=== PATIENT | male | born 1950 | race Caucasian/White ===

== ENCOUNTER → 2023-11-06 08:15 | Outpatient (REF) | payer MEDICARE, BC, SELFPAY | LOC: RAD 08:15 | PROVIDERS: ATTENDING PHYSICIAN Otolaryngology; FAMILY PHYSICIAN Internal Medicine | DX: R13.14 Dysphagia, pharyngoesophageal phase (principal) | CPT/HCPCS: 74230; 92611 ==

== ENCOUNTER → 2023-11-20 14:14 | Outpatient (REF) | payer MEDICARE, BC, SELFPAY | LOC: HWRAD 14:14 | PROVIDERS: ATTENDING PHYSICIAN Specialist; FAMILY PHYSICIAN Internal Medicine | DX: R51.9 Headache, unspecified (principal) | CPT/HCPCS: 70470; Q9967 ==

== ENCOUNTER → 2024-01-26 15:43 | Outpatient (REF) | payer MEDICARE, BC, SELFPAY | LOC: HWRAD 15:43 | PROVIDERS: ATTENDING PHYSICIAN Nurse Practitioner Acute Care; FAMILY PHYSICIAN Internal Medicine | DX: M43.25 Fusion of spine, thoracolumbar region (principal) | CPT/HCPCS: 72128 ==

== ENCOUNTER 2024-02-02 14:56 | Inpatient (IN) | payer MEDICARE, BC, SELFPAY ==
[2024-02-02] VITALS (10 sets, daily range): BP systolic 105–138; BP diastolic 68–106; PULSE 68–86; BMI 32.3
[2024-02-02 11:00] LABS: % Basophils 0.6 % (0-2); % Eosinophils 2.6 % (0-6); % Immature Granulocytes 0.5 % (0-0.5); % Lymphocytes 8.8 % (20.5-51.1); % Monocytes 7.8 % (1.7-9.3); % Neutrophils 79.7 % (42.2-75.2); Absolute Basophils 0.1 10^3/uL (0-0.2); Absolute Eosinophils 0.3 10^3/uL (0-0.7); Absolute Immature Granulocytes 0.1 10^3/uL (0-0.05); Absolute Monocytes 0.8 10^3/uL (0.1-0.6); Absolute Neutrophils 8.6 10^3/uL (1.4-6.5); Hematocrit 34.7 % (39.0-52.0); Mean Corp Hgb Conc. 34.6 g/dL (33.0-37.0); Mean Corpuscular Hgb 30.3 pg (27.0-31.0); Mean Corpuscular Volume 87.6 fL (80.0-94.0); Mean Platelet Volume 9.8 fL (7.4-10.4); Nucleated Red Blood Cells % 0 % (-); Platelet Count 251 10^3/uL (130-400); Red Blood Cell Count 3.96 10^6/uL (4.70-6.10); Red Cell Dist. Width 13.2 % (11.5-14.5); White Blood Cell Count 10.8 10^3/uL (4.8-10.8)
[2024-02-02] MEDS: NSS 500 IV (11:00)
[2024-02-02 11:13] LABS: INR 1.12; PT 14.2 Sec (11.4-14.6)
[2024-02-02 11:15] LABS: ALT (SGPT) 23 U/L (0-50); AST (SGOT) 33 U/L (17-59); Albumin 3.7 g/dl (3.5-5.0); Alkaline Phosphatase 69 U/L (38-126); Blood Urea Nitrogen 24 mg/dl (9-20); Carbon Dioxide 27 mmol/L (22-30); Chloride 106 mmol/L (98-107); Estimated Creatinine Clearance 107 ml/min; Glucose 106 mg/dl (70-99); Potassium 4.3 mmol/L (3.5-5.1); Sodium 135 mmol/L (135-145); Total Bilirubin 0.5 mg/dl (0.2-1.3); Total Protein 6.6 g/dl (6.3-8.2); eGFR > 60.00
[2024-02-02 11:29] LABS: APTT 26.5 Sec (23.4-35.0)
--- NOTE | 2024-02-02 12:33 | ED.GENMED ---
History of Present Illness
General
Chief Complaint: Anal/Rectal Problem
Source: patient
Exam Limitations: none
Time Seen by Provider: 02/02/24 10:22
Nursing documentation reviewed up to this point in time: agreed with
Travel History
Have you had any contact with someone who has COVID-19?: No
Do you have any symptoms of coronavirus? Fever > 100 degrees, chills, cough, shortness of breath, sore throat, loss of taste or smell, muscle aches, or headache?: No
History of Present Illness
History of Present Illness:
Patient presents to ED secondary to large quantity of bright red blood per rectum during bowel movement this morning, associated with diaphoresis and dizziness. Patient states that he did notice blood when he was wiping after bowel movement 5 days
ago. Since then, patient has had lack of bowel movement. Patient did take milk of magnesia prior to bowel movement this morning. Denies abdominal pain. Denies fever or chills. Denies nausea vomiting. Denies recent change in medications or
diet. Of note, patient does take ibuprofen chronically for joint pain. Denies previous history of similar symptoms.
Past History
Past History
ED Past Medical History: None
ED Past Surgical History: Orthopedic, Urological and Other
Social History
Tobacco: Non-smoker
Alcohol: None
Drug: None
Review of Systems
Review of Systems
Allergies reviewed?: Yes
Constitutional: Reports no symptoms
EENT: Reports no symptoms
Respiratory: Reports no symptoms
Cardiac: Reports no symptoms
ABD/GI: Reports abdominal pain and bloody stools
Musculoskeletal: Reports no symptoms
Skin: Reports no symptoms
Neurological: Reports no symptoms
Phy Exam
Physical Exam
Physical Exam:
Physical Exam
General: no apparent distress, not acutely ill. afebrile.
Head: nc/at. eomi
Neck: supple. no meningeal signs.
Heart: s1/s2 regular rate and rhythm, no murmur. equal radial pulses.
Lungs: no acute respiratory distress. clear bilaterally
Abdomen: normal bowel sounds. not tender. rectal exam: maroon stool, grossly heme positive
Neuro: alert and oriented. no focal neurological deficits
Skin: no rash
Psychiatric: well kept. interactive and cooperative
Extremities: no edema. no calf tenderness.
Course
Orders/Labs/Results
Orders:
Orders
02/02/24 Lunch
Clear Liquid
At Your Request: Limited Participation
Does patient need a safe tray?: No
02/02/24 10:34
IV Insert/Care/Rem.- Treatment PRN
0.9% Sodium Chloride 500 ml [Nss] 500 ml IV BOLUS
02/02/24 10:51
Type+Screen Urgent
Complete Blood Count/With Diff Urgent
Comprehensive Metabolic Panel Urgent
PTT Urgent
Prothrombin Time Urgent
02/02/24 12:33
Pantoprazole [Protonix IV] 40 mg IV NOW STA
02/02/24 14:37
Admit/Transfer Patient As Directed
Co-Sign Provider:
Level of Care: Inpatient admission
Assign to:: Telemetry
Physician / Group: naranjo/hospitalist
Diagnosis: GI bleed
Reason for Telemetry: Other
Other Reason for Telemetry: gi bleed
Date to Stop Telemetry: 02/04/24
Time to Stop Telemetry: 11:00
Reason for Hospitalization: GI bleed
Expected length of stay greater than two midnights?: Yes
ELOS- Estimated Length of Stay in days: 3
I certify the patient meets the requirements for IP care: Yes
Code Status As Directed
Resuscitation Status: Full Code
02/02/24 15:25
0.9% Sodium Chloride 1000 ml [Nss] 1,000 ml IV 100 mls/hr
02/02/24 15:25
GASTROINTESTINAL CONSULT Routine
Consulting Provider: Traci Navarro
Was physician already notified: Yes
Reason for consult: tt by ER
Activity As Directed
Activity Level: Out of Bed-Early Mobility
INT (Intravenous Needle Therapy) As Directed
Comment: Place 2 IV catheters of the largest bore possible until stable
Orthostatic Vital Signs As Directed
Orthostatic VS Frequency: Now
Comment: then every four hours for twenty-four hours
Pneumatic Compression Sleeves As Directed
Type: Knee high
Vital Signs As Directed
Frequency: Per unit guidelines
DX Deep Vein Thrombosis Video Routine
02/02/24 15:45
H&H Q8H
02/02/24 20:00
Pantoprazole [Protonix IV] 40 mg IV BID
02/02/24 23:45
H&H Q8H
02/03/24 06:00
Basic Metabolic Panel IN AM
02/03/24 07:25
H&H Q8H
02/04/24 06:00
Basic Metabolic Panel IN AM
02/04/24 11:00
DC Protocol for Telemetry ONCE
02/05/24 06:00
Basic Metabolic Panel IN AM
02/06/24 06:00
Basic Metabolic Panel IN AM
Abnormal Lab Results
02/02/24
10:51
RBC 3.96 L 10^6/uL
(4.70-6.10)
Hgb 12.0 L g/dL
(13.0-18.0)
Hct 34.7 L %
(39.0-52.0)
Abs Immat Gran (auto) 0.1 H 10^3/uL
(0-0.05)
Absolute Neuts (auto) 8.6 H 10^3/uL
(1.4-6.5)
Absolute Lymphs (auto) 1.0 L 10^3/uL
(1.2-3.4)
Absolute Monos (auto) 0.8 H 10^3/uL
(0.1-0.6)
Neutrophils % 79.7 H %
(42.2-75.2)
Lymphocytes % 8.8 L %
(20.5-51.1)
BUN 24 H mg/dl
(9-20)
Glucose 106 H mg/dl
(70-99)
02/02/24 10:51
02/02/24 10:51
Vital Signs
Initial and Last Documented VS:
Initial Vital Signs
Temp Pulse BP Pulse Ox
97.6 F 65 109/74 97
02/02/24 09:43 02/02/24 09:43 02/02/24 09:43 02/02/24 09:43
Last Documented Vital Signs
Temp Pulse Resp BP Pulse Ox
98.4 F 69 20 112/66 97
02/03/24 03:17 02/03/24 03:17 02/03/24 03:17 02/03/24 03:17 02/03/24 03:17
MDM/Problems Addressed
MDM/Problems Addressed:
H/H noted. Blood transfusion consent on the chart.
Protonix given. Will admit for further evaluation and treatment.
*Critical Care Note
Total Time (30-74mins, 75-104mins- exclusive of procedures): Not Applicable
ED Attending Note
-
Portions of this chart may have been created with voice recognition software.� Occasional wrong word or��sound alike� substitutions may have occurred due to the inherent limitations of voice recognition software.
Discharge Plan
Departure
Patient Disposition: Admit
Date of Disposition: 02/02/24
Time of Disposition: 12:39
Admit to: Telemetry
Presentation/result/management discussed w/ accepting MD/DO: Hospitalist
Discharge Problem:
GI bleed
Interventions
Interventions:
*Risk Screen - Suicide Last Done: 02/02/24 10:44
*General Assessment Last Done: 02/02/24 10:44
*Neglect/Abuse Screening Last Done: 02/02/24 10:44
ED- Fall Risk Assessment Last Done: 02/02/24 10:44
*ED COVID-19 Vaccine History Last Done: 02/02/24 09:48
*Nursing Disposition Last Done: 02/02/24 15:20
UU-Hozybt-Hlvcfpgrob Assessment Last Done: 02/02/24 11:01
ED-Skin Assessment Last Done: 02/02/24 11:01
Discharge Date and Time
Discharge Date/Time: 02/02/24 15:20
[2024-02-02] MEDS: PROTONIX IV 40 MG IV ×2 (12:54→20:11)
--- NOTE | 2024-02-02 14:29 | EDRN ---
Joyce PATTERSON w/GI in to see pt.
--- NOTE | 2024-02-02 14:39 | HPS.HSE ---
Family Physician
-
Family Physician: Justine Lee
Chief Complaint
-
blood in stool
History of Present Illness
73-year-old male with no significant past medical history was presented with bright red blood per the rectum. Patient states usually has bowel movements every 2 to 3 days. States recently he was constipated for 5 days and has been taking Colace,
MiraLAX without any results. Yesterday he took milk of magnesia and then this morning had a bowel movement with with bright blood blood per the rectum. Denies any blood clots. Denies any cramping. Does take ibuprofen as prescribed by [place] for his
chronic pain due to spinal fusion. Denies any nausea or vomiting. Denies any lightheaded or dizziness. Denies hematemesis. States had a colonoscopy 10 years ago and afterwards had a stool testing which was negative for blood. No recent weight
loss. Denies smoking. Denies any prior history of GI bleeding.
Medical History
Past Medical History
Past Medical History: Reports Other
Additional Past Medical History:
Osteoarthritis
History of prostate cancer status post prostatectomy
Past Surgical History: Reports Other
Additional Past Surgical History:
Spinal fusion/multiple back surgeries
Hernia repair
Right periprosthetic femoral fracture status post surgery
History of prostate carcinoma status post robotic prostatectomy in 2010.
Bilateral hip replacement
Left knee replacement
Social History
Tobacco: Non-smoker
Alcohol: Occasional
Employment: Retired ([employer])
Family History
Family History: Not pertinent
Allergies / Home Medications
Allergies reflects when Allergies were last updated in [employer].
Home Medications with original date entered in [employer]
Allergy/Medication List:
Allergies
Allergy/AdvReac Type Severity Reaction Status Date / Time
No Known Allergies Allergy Verified 02/02/24 09:49
Home Medications
docusate sodium 100 mg capsule 100 mg PO BIDPRN PRN constipation 02/02/24
ibuprofen 200 mg tablet (Advil) 400 mg PO DAILY 02/02/24
ibuprofen 200 mg tablet (Advil) 400 mg PO HSPRN PRN mild pain 02/02/24
magnesium hydroxide 400 mg/5 mL oral suspension (Milk of Magnesia) 2,400 mg PO DAILYPRN PRN constipation 02/02/24
multivitamin with calcium carb and iron tablet 1 tab PO DAILY 02/02/24
psyllium 1 packet PO DAILYPRN PRN constipation 02/02/24
Review of Systems
-
History Source: Patient
A 12 point ROS was completed and negative except as noted: Yes
Physical Exam
Vital Signs
Vital Signs
Temp Pulse Resp BP Pulse Ox
97.6 F 66 19 116/83 97
02/02/24 09:43 02/02/24 14:00 02/02/24 14:00 02/02/24 13:00 02/02/24 13:00
Physical Exam
General: Well Developed, Well Nourished and No Apparent Distress
HEENT: NormoCephalic, Moist mucous membranes and Atraumatic
Respiratory: Clear
Cardiac: S1/S2 and Regular Rhythm; No Murmur or Rub
GI: Soft, Non Tender, Non Distended and Normal Bowel Sounds; No Organomegaly
Rectal: Deferred by Provider
Musculoskeletal: No Clubbing, No Cyanosis and No Edema
Skin: Warm; No Rash
Neuro: Awake, Oriented, AO x 3, No Motor Deficits and Nonfocal/grossly intact
Psych: Calm
Laboratory Results
-
02/02/24 10:51
02/02/24 10:51
Laboratory Results
PT 14.2 Sec (11.4-14.6) 02/02/24 10:51
INR 1.12 02/02/24 10:51
APTT 26.5 Sec (23.4-35.0) 02/02/24 10:51
Total Bilirubin 0.5 mg/dl (0.2-1.3) 02/02/24 10:51
AST 33 U/L (17-59) 02/02/24 10:51
ALT 23 U/L (0-50) 02/02/24 10:51
Alkaline Phosphatase 69 U/L (38-126) 02/02/24 10:51
Impression/Plan
-
# Bright red blood per rectum likely secondary to lower GI bleed ? Stercoral colitis versus diverticulosis versus AVM
Liquid diet for now
Start patient PPI twice daily
Trend H&H
Blood consent scanned into [employer]
Start patient on IV fluids
Currently CT scan machine is down. Can consider CT abdomen pelvis
Monitor stool output
Gastroenterology has been consulted.
Avoid NSAIDs
Osteoarthritis
Tylenol as needed
Prostate cancer status post surgery
Monitor urinary output
Multiple spinal surgeries/fusion
Fall precautions
DVT prophylaxis SCDs in the setting of GI bleeding
--- NOTE | 2024-02-02 14:45 | CON.GI ---
Addendum entered and electronically signed by Traci Navarro MD 02/02/24 17:28:
I saw and examined the patient.
The MEDICAL TRANSCRIPTION SUPERVISOR or PA's note was reviewed and I agree with the note.
Comment: 73 yo M pmh prostate ca s/p prostate surgery no radiation, constipation p/w brbpr. Patient states he was constipated for the last week with no bowel movement. He has intermittent constipation which he blames on his spinal fusion surgery.
He also takes regular ibuprofen. He took Colace and MiraLAX with no aid with a bowel movement last night and milk of magnesia and had a large bowel movement followed by diarrhea with some blood around the toilet unable to quantify how much with
'dark stool'. He had some nausea as well he had multiple bowel movements. He denies any anal pain, abdominal pain, weight loss. Last colonoscopy 10 years ago, Cologuard this year was negative. No family history of colon cancer. Patient is
concerned about colonoscopy as after the spinal fusion surgery they 'moved around his organs' and he feels there is a tight turn in his left colon. He is having issues with pills but no issues with food or liquids. Only when he takes time vitamin
sometimes he feels gets stuck.
On rectal exam today, he does have hemorrhoids. No fissure that I can see. Minimal scant bright red blood on my exam as well.
Hemoglobin 12. Most likely he is self-limited bleeding with hemorrhoid possible fissure although no anal pain. He is not on any blood thinners.
For now, we will keep him on a clear liquid diet and ensure no further rectal bleeding. His BUN is a little elevated at 24 but back in 2021 it was the same.
We discussed eventual colonoscopy inpatient versus outpatient pending clinical status. Risk, alternatives, benefits of colonoscopy including but not limited to bleeding, infection, perforation reviewed with the patient. Need for prep reviewed.
Will need 2-day prep given constipation. Since he only has issues with large pills, most likely we can hold off on upper endoscopy. He did note some dark stool but this was with the blood around it and his BUN is a little elevated but his
hemoglobin is 12 and his BUN is at his baseline. I do recommend that he hold off on further NSAIDs.
Additionally, I recommend MiraLAX twice a day for his constipation, Anusol twice a day for possible hemorrhoids as well as sitz bath's upon discharge.
Original Note:
Consultation
-
Date/Time Consultation Requested: 02/02/24 1300
Date/Time Consultation Performed: 02/02/24 1415
Requesting Provider: Jaylene TORRES
Performing Provider: Dr. Navarro/MELISSA Blackwell
Reason for Consultation: rectal bleeding
Medical History
Chief Complaint / HPI
Chief Complaint: rectal bleeding
History of Present Illness:
73-year-old male with past medical history of prostate cancer status post prostatectomy, osteoarthritis significant thoracic spine surgery, constipation who presents to the emergency room with bright red blood per rectum. Patient states that since
he had his spine surgery that was anterior and posterior approach he had constipation where he has bowel movements every other day or every 2 days. He uses Colace and MiraLAX to have bowel movements every couple days. These are usually [place]
stool scale #1. Usually has bouts with defecation. The patient states that he had not had a bowel movement in some time therefore he continued with Colace and MiraLAX. He states that since he had not had a bowel movement he has been Milk of
Magnesia which then started to stimulate a bowel movement. He states he sat on the toilet had difficulty defecating was pushing started to produce hard bowel movements with feeling of near syncope. He started having multiple bowel movements with
diarrhea dark brown stool and he started to notice blood within the toilet. There was only 1 episode of this. The patient states that there was red blood in the toilet that coated the sides. The patient denies any fevers, chills, vomiting,
melena, early satiety or unintentional weight loss. The patient has had multiple colonoscopies in the past every 10 years without any polyps. He recently had a Cologuard with his PCP in October that was negative. He has no family history
gastrointestinal malignancy or inflammatory bowel disease. He takes ibuprofen 400 mg every day for osteoarthritis. He takes no other NSAIDs. He drinks occasional alcohol. He has noticed that after starting a vitamin/supplement he felt this
getting stuck and that he tried to drink water to pass this. He felt as if this melted and then had a sensation of an irritation in that area. Prior to that he had no issues of dysphagia or odynophagia. He does not have any history of
gastroesophageal reflux disease.
Past Medical History
Past Medical History: Cancer (Prostate cancer) and Other (Osteoarthritis, constipation)
Past Surgical History: Orthopedic (Left hand carpal tunnel release, bilateral hip replacement, back surgeries x 3, left knee replacement) and Other (Hernia repair)
Social History
Tobacco: Non-Smoker
Alcohol: Occasional
Drug: None
Personal:
Living: With Family
Family History
Family History: Other (No family history gastrointestinal malignancy or inflammatory bowel disease)
Allergies / Home Medications
Allergy/AdvReac Type Severity Reaction Status Date / Time
No Known Allergies Allergy Verified 02/02/24 09:49
�Medication �Instructions �Recorded
docusate sodium 100 mg capsule 100 mg PO BIDPRN PRN constipation 02/02/24
ibuprofen 200 mg tablet (Advil) 400 mg PO DAILY 02/02/24
ibuprofen 200 mg tablet (Advil) 400 mg PO HSPRN PRN mild pain 02/02/24
magnesium hydroxide 400 mg/5 mL 2,400 mg PO DAILYPRN PRN 02/02/24
oral suspension (Milk of Magnesia) constipation
multivitamin with calcium carb and 1 tab PO DAILY 02/02/24
iron tablet
psyllium 1 packet PO DAILYPRN PRN 02/02/24
constipation
Review of Systems
-
All other systems: A 12 pt ROS was Negative except as stated above in HPI
Vital Signs
Temp Pulse Resp BP Pulse Ox
97.6 F 66 19 116/83 97
02/02/24 09:43 02/02/24 14:00 02/02/24 14:00 02/02/24 13:00 02/02/24 13:00
Physical Exam
Exam
General: No Apparent Distress
HEENT: Normocephalic
Respiratory: Clear
Cardiac: Regular Rhythm
GI: Soft, Non Tender, Non Distended and Normal Bowel Sounds
Rectal: Maroon Stools (Per ER)
Musculoskeletal: No Edema
Skin: Warm and Dry
Neuro: AO x 3
Psych: Calm
Results
WBC 10.8 10^3/uL (4.8-10.8) 02/02/24 10:51
Hgb 12.0 g/dL (13.0-18.0) L 02/02/24 10:51
Hct 34.7 % (39.0-52.0) L 02/02/24 10:51
MCV 87.6 fL (80.0-94.0) 02/02/24 10:51
Plt Count 251 10^3/uL (130-400) 02/02/24 10:51
Absolute Neuts (auto) 8.6 10^3/uL (1.4-6.5) H 02/02/24 10:51
PT 14.2 Sec (11.4-14.6) 02/02/24 10:51
INR 1.12 02/02/24 10:51
APTT 26.5 Sec (23.4-35.0) 02/02/24 10:51
Sodium 135 mmol/L (135-145) 02/02/24 10:51
Potassium 4.3 mmol/L (3.5-5.1) 02/02/24 10:51
Chloride 106 mmol/L (98-107) 02/02/24 10:51
Carbon Dioxide 27 mmol/L (22-30) 02/02/24 10:51
BUN 24 mg/dl (9-20) H 02/02/24 10:51
Creatinine 0.8 mg/dL (0.7-1.3) 02/02/24 10:51
Calcium 9.0 mg/dl (8.4-10.2) 02/02/24 10:51
Total Bilirubin 0.5 mg/dl (0.2-1.3) 02/02/24 10:51
AST 33 U/L (17-59) 02/02/24 10:51
ALT 23 U/L (0-50) 02/02/24 10:51
Alkaline Phosphatase 69 U/L (38-126) 02/02/24 10:51
Diagnostic Image Results:
Prior GI Procedures:
EGD: Never had
Colonoscopy: Patient states approximately 10 years ago. All colonoscopies have always been negative per patient. Cologuard performed in October was negative per patient
Assessment / Plan
-
73-year-old male with past medical history of prostate cancer status post prostatectomy, osteoarthritis significant thoracic spine surgery, constipation who presents to the emergency room with bright red blood per rectum. Patient states that since
he had his spine surgery that was anterior and posterior approach he had constipation where he has bowel movements every other day or every 2 days. He uses Colace and MiraLAX to have bowel movements every couple days. These are usually [place]
stool scale #1. Usually has bouts with defecation. The patient states that he had not had a bowel movement in some time therefore he continued with Colace and MiraLAX. He states that since he had not had a bowel movement he has been Milk of
Magnesia which then started to stimulate a bowel movement. He states he sat on the toilet had difficulty defecating was pushing started to produce hard bowel movements with feeling of near syncope. He started having multiple bowel movements with
diarrhea dark brown stool and he started to notice blood within the toilet. There was only 1 episode of this. The patient states that there was red blood in the toilet that coated the sides. WBC 10.8, hemoglobin 12.0, hematocrit 34.7, platelet
count 251, PT 14.2, INR 1.1, BUN 24, creatinine 0.8, liver function test within normal limits.
Impression:
Rectal bleeding
Constipation
-- Bright red blood per rectum following multiple days of constipation and bowel regimen. No further episodes after 1 incident. Hemoglobin stable. Vital signs stable.
Plan:
-Okay for clear liquids, no reds
-Trend hemoglobin
-If patient with active bleeding would only plan on CTA at that time.
-Further recommendations to be forthcoming.
-
-
Thank you for consultation and allowing me to participate in the patient's care. Please call the personal care attendant GI physician during the after hours with any questions or concerns.
[2024-02-02 16:00] LABS: Hematocrit 36.6 % (39.0-52.0); Hemoglobin 12.4 g/dL (13.0-18.0)
[2024-02-02] MEDS: NSS 1000 IV ×2 (16:13→23:51)
--- NOTE | 2024-02-02 17:47 | PTCARENOTE ---
Patient admitted to room 406-01 from the ER. Vital signs stable. No rectal bleeding since this morning. Oriented to room, use of call christina, and television and bed controls. Reviewed plan of care with patient. Patient verbalizes understanding of
teaching and denies questions at this time.
[2024-02-02] MEDS: NSS (PRESERVATIVE FREE) 10 ML IV (20:11)
[2024-02-02 23:49] LABS: Hemoglobin 11.2 g/dL (13.0-18.0)
[2024-02-03 03:17] VITALS: BP 112/66
[2024-02-03] MEDS: PROTONIX IV 40 MG IV (07:11)
[2024-02-03] MEDS: NSS (PRESERVATIVE FREE) 10 ML IV (07:11)
[2024-02-03 07:56] LABS: Hematocrit 31.9 % (39.0-52.0); Hemoglobin 10.8 g/dL (13.0-18.0)
[2024-02-03 08:04] VITALS: BP 129/77
[2024-02-03 08:29] LABS: Blood Urea Nitrogen 14 mg/dl (9-20); Calcium 8.9 mg/dl (8.4-10.2); Carbon Dioxide 23 mmol/L (22-30); Chloride 110 mmol/L (98-107); Estimated Creatinine Clearance 107 ml/min; Glucose 95 mg/dl (70-99); Sodium 138 mmol/L (135-145); eGFR > 60.00
--- NOTE | 2024-02-03 09:09 | W.PN.GI.CBS2 ---
Addendum entered and electronically signed by Ewelina Lopez DO 02/03/24 11:42:
I saw and examined the patient.
The PRESS LOADER or PA's note was reviewed and I agree with the note.
Comment: Patient seen in follow-up today. No bleeding overnight, hemoglobin stable. Plan for discharge today with outpatient colonoscopy scheduled for 02/08. Patient comfortable with plan. All questions answered.
GI will sign off, please call with questions.
Original Note:
Today's Communication / Plan
-
Miralax BID
Solid diet
Outpatient colo 02/09/24
Assessment / Plan
-
73-year-old male with past medical history of prostate cancer status post prostatectomy, osteoarthritis significant thoracic spine surgery, constipation who presents to the emergency room with bright red blood per rectum. Patient states that since
he had his spine surgery that was anterior and posterior approach he had constipation where he has bowel movements every other day or every 2 days. He uses Colace and MiraLAX to have bowel movements every couple days. These are usually [place]
stool scale #1. Usually has bouts with defecation. The patient states that he had not had a bowel movement in some time therefore he continued with Colace and MiraLAX. He states that since he had not had a bowel movement he has been Milk of
Magnesia which then started to stimulate a bowel movement. He states he sat on the toilet had difficulty defecating was pushing started to produce hard bowel movements with feeling of near syncope. He started having multiple bowel movements with
diarrhea dark brown stool and he started to notice blood within the toilet. There was only 1 episode of this. The patient states that there was red blood in the toilet that coated the sides. WBC 10.8, hemoglobin 12.0, hematocrit 34.7, platelet
count 251, PT 14.2, INR 1.1, BUN 24, creatinine 0.8, liver function test within normal limits.
Impression:
Rectal bleeding
Constipation
-- Bright red blood per rectum following multiple days of constipation and bowel regimen. No further episodes after 1 incident.
Plan:
-Advance diet to solid
-Miralax BID
-Colonoscopy with Dr. Navarro 02/09/24, office called and appt made.
Subjective
Subjective
Date of Service: February 03, 2024
Patient without any signs of bleeding or BM since arrival. Hgb 10.8 from 12.0 with IVF. Patient tolerating clear liquid diet and will advance to solid diet now.
Patient agreeable for outpatient Colonoscopy 02/09/24, will arrange.
Objective
Data Reviewed
Laboratory Data:
Laboratory Results
02/03/24 07:33
02/03/24 07:33
Laboratory Results
PT 14.2 Sec (11.4-14.6) 02/02/24 10:51
INR 1.12 02/02/24 10:51
APTT 26.5 Sec (23.4-35.0) 02/02/24 10:51
Total Bilirubin 0.5 mg/dl (0.2-1.3) 02/02/24 10:51
AST 33 U/L (17-59) 02/02/24 10:51
ALT 23 U/L (0-50) 02/02/24 10:51
Alkaline Phosphatase 69 U/L (38-126) 02/02/24 10:51
Vital Signs and I&O:
Vital Signs
Temp Pulse Resp BP Pulse Ox
97.9 F 64 18 129/77 95
02/03/24 08:04 02/03/24 08:04 02/03/24 08:04 02/03/24 08:04 02/03/24 08:04
I&O
02/02/24 02/03/24 02/04/24
06:59 06:59 06:59
Intake Total 780 / 780
Output Total 600 / 600
Balance 180 / 180
Physical Exam
Physical Exam
HEENT: Anicteric
Cardiology: Normal Sinus Rhythm
GI: Soft, Non Distended, Non Tender and Normal Bowel Sounds
Extremities: No Edema
Neuro: Non Focal
--- NOTE | 2024-02-03 10:10 | CM ---
CM assessment completed. Mr. Burns is looking forward to returning home with and daughter today. No needs identified.
PCP is Dr. Justine Lee
[facility]
--- NOTE | 2024-02-03 11:21 | CM ---
CM assessment completed today with Bishnu. He is anxious to be discharged and return home. Colonoscopy scheduled as outpatient on 02/09/2024 and will provide transport to/from the test. No needs identified at this time.
--- NOTE | 2024-02-03 11:22 | PTCARENOTE ---
Patient ate regular diet for breakfast. Tolerated well. Denies any BMs.
--- NOTE | 2024-02-03 11:38 | W.PN.HOSP.TC ---
Today's Communication/Plan
-
DC home
Outpatient colonoscopy next week
Assessment / Plan
Assessment / Plan
# Bright red blood per rectum likely secondary to lower GI bleed hemorrhoidal secondary to severe constipation low likelihood of AVM versus diverticulosis
Tolerated liquid diet and regular diet
DC ppi.
Hgb at 10.8 from 12.
No Further episode of bright red blood per rectum. Denies abdominal pain nausea vomiting.
Blood consent scanned into [email or web address]
DC IVF.
Monitor stool output
Per GI plan is for outpatient colonoscopy next week.
Gastroenterology has been consulted.
Avoid NSAIDs
Osteoarthritis
Tylenol as needed avoid NSAIDs.
Prostate cancer status post surgery
Monitor urinary output
Multiple spinal surgeries/fusion
Fall precautions
DVT prophylaxis SCDs in the setting of GI bleeding
d/w with GI okay to dc home. OP C-scope next week
More than 30 minutes spent in discharge including
Final examination of the patient
Summarizing hospital stay
Instructions for continuing care to all relevant caregivers
Preparation of discharge records, prescriptions, and referral forms
Total time spent (in minutes): 40
Anticipated Discharge: Today
Subjective/Interval History
-
Date of Service: February 03, 2024
No further BRBPR
no abd pain or discomfort
no nausea or vomiting
eager to eat
diet advanced by GI
Objective Data
-
Labs:
Laboratory Results
02/02/24 02/03/24
23:45 07:33
Hgb 11.2 L 10.8 L
Hct 33.0 L 31.9 L
Sodium 138
Potassium 4.0
Chloride 110 H
Carbon Dioxide 23
BUN 14
Creatinine 0.8
Glucose 95
Calcium 8.9
Vital Signs:
Vital Signs
Temp Pulse Resp BP Pulse Ox
97.9 F 64 18 129/77 95
02/03/24 08:04 02/03/24 08:04 02/03/24 08:04 02/03/24 08:04 02/03/24 08:04
I&O
02/02/24 02/03/24 02/04/24
06:59 06:59 06:59
Intake Total 780 / 780
Output Total 600 / 600
Balance 180 / 180
Physical Exam
-
General: Well Developed and No Apparent Distress
HEENT: Normocephalic, Atraumatic and Moist Mucous Membranes
Respiratory: Clear to Auscultation
Cardiac: Regular Rhythm and S1/S2; Negative Murmur, Rub or Gallop
GI: Soft, Nontender, Nondistended and Normal Bowel Sounds; Negative Organomegaly
Rectal: Deferred by Provider
Musculoskeletal: No Clubbing, No Cyanosis and No Edema
Skin: Negative Rash
Neuro: Awake, No Motor Deficits and Nonfocal/Grossly Intact
Psych: Calm
--- NOTE | 2024-02-03 11:51 | W.DCSUMMARY ---
Discharge Summary
Discharge Data
Date of Admission: 02/02/24
Date of Discharge: 02/03/24
-
Pending Results: No
Hospital Course
73-year-old male past medical history of extensive spinal surgery with spinal fusion is presented with complaints of bright red blood per the rectum. Patient states prior to arrival he was having constipation and took milk of magnesia and
subsequently afterwards saw some blood in the toilet bowl. Patient was admitted to the hospital and was started on clear liquid diet and PPI. Patient hemoglobin was trended and did not require blood transfusion. Patient symptomology resolved.
Patient symptoms was seems secondary to severe constipation. Bowel regimen. Gastroenterology evaluated patient. Patient tolerated clear liquid diet and no further episodes of bleeding and diet was advanced to regular diet. Patient be discharged
home with outpatient colonoscopy scheduled for next week per gastroenterology.
Discharge Plan
-
Patient Disposition: Home (Routine Discharge)
Discharge Diagnosis/Procedures: Bright red blood per the rectum likely secondary to severe constipation versus more likely of AVMs or diverticulosis
Condition: Fair
Diet: Regular
Activity: With assistance and As tolerated
Driving Restrictions: As prior to admission
Blood Work: cbc in 1 week via primary doctor.
Referrals:
Justine Lee MD [Family Provider] - in less than 1 week
Traci Navarro MD [Active] - (Follow-up for colonoscopy)
Prescriptions:
New
polyethylene glycol 3350 [HealthyLax] 17 gram Powder In Packet
17 g PO DAILY 30 Days Qty: 30 0RF
hydrocortisone acetate 25 mg Suppository
25 mg ME BID Qty: 24 0RF
Continued
psyllium Packet
1 packet PO DAILYPRN PRN (Reason: constipation)
magnesium hydroxide [Milk of Magnesia] 400 mg/5 mL Suspension
2,400 mg PO DAILYPRN PRN (Reason: constipation)
multivitamin-calcium carb-iron Tablet
1 tab PO DAILY
docusate sodium 100 mg capsule
100 mg PO BIDPRN PRN (Reason: constipation)
Discontinued
ibuprofen [Advil] 200 mg Tablet
400 mg PO DAILY
ibuprofen [Advil] 200 mg Tablet
400 mg PO HSPRN PRN (Reason: mild pain)
Discharge Orders:
Discharge Patient (As Directed); Ordered 02/03/24
Ordered By: Jewel Parkinson
Discharge Date and Time
Discharge Date/Time: 02/03/24 13:55
Print Language: KHMER
[2024-02-03 11:53] VITALS: BP 113/73
--- NOTE | 2024-02-03 12:29 | PTCARENOTE ---
Reviewed discharge instructions with patient. Patient verbalizes understanding and denies questions at this time. Peripheral IVs removed. Tele removed. Family will be patient transport.
[2024-02-03] MEDS: NSS IV (12:53)
== END 2024-02-03 13:55 | disposition home or self-care (01) | DRG 392 ==
LOC: 4 EAST ACU 14:56
PROVIDERS: ADMITTING PHYSICIAN Hospitalist; CONSULT PHYSICIAN Internal Medicine Gastroenterology; EMERGENCY PHYSICIAN Emergency Medicine; FAMILY PHYSICIAN Internal Medicine
DX: K59.00 Constipation, unspecified (principal); M19.90 Unspecified osteoarthritis, unspecified site
CPT/HCPCS: 80048; 80053; 85014; 85018; 85025; 85610; 85730; 86850; 86900; 86901; 96361; 96374; 99285

== ENCOUNTER → 2024-02-09 06:33 | Day surgery (SDC) | payer MEDICARE, BC, SELFPAY | LOC: GI 06:33 | PROVIDERS: ATTENDING PHYSICIAN Internal Medicine Gastroenterology | DX: K62.5 Hemorrhage of anus and rectum (principal); K57.30 Diverticulosis of large intestine without perforation or abscess without bleeding; K64.0 First degree hemorrhoids; D12.0 Benign neoplasm of cecum; D12.3 Benign neoplasm of transverse colon | CPT/HCPCS: 45385; 45381; 45380; 88305 ==

== ENCOUNTER → 2024-02-13 20:03 | Outpatient (REF) | payer MEDICARE, BC, SELFPAY | LOC: MRI 20:03 | PROVIDERS: ATTENDING PHYSICIAN Nurse Practitioner Acute Care; FAMILY PHYSICIAN Internal Medicine | DX: M43.25 Fusion of spine, thoracolumbar region (principal) | CPT/HCPCS: 72146 ==

== ENCOUNTER → 2024-02-25 14:05 | Outpatient (REF) | payer MEDICARE, BC, SELFPAY | LOC: HWRAD 14:05 | PROVIDERS: ATTENDING PHYSICIAN Nurse Practitioner Acute Care; FAMILY PHYSICIAN Internal Medicine | DX: M48.02 Spinal stenosis, cervical region (principal); M54.6 Pain in thoracic spine | CPT/HCPCS: 72050; 72125 ==

== ENCOUNTER → 2024-03-10 12:11 | Outpatient (REF) | payer MEDICARE, BC, SELFPAY | LOC: PAVMRI 12:11 | PROVIDERS: ATTENDING PHYSICIAN Nurse Practitioner Acute Care; FAMILY PHYSICIAN Internal Medicine | DX: M48.02 Spinal stenosis, cervical region (principal); M54.6 Pain in thoracic spine | CPT/HCPCS: 72141 ==

== ENCOUNTER → 2024-09-30 14:34 | Outpatient (REF) | payer MEDICARE, BC, SELFPAY | LOC: HWRAD 14:34 | PROVIDERS: FAMILY PHYSICIAN Internal Medicine | DX: M54.12 Radiculopathy, cervical region (principal) | CPT/HCPCS: 72040 ==

== ENCOUNTER → 2024-12-08 15:10 | Outpatient (REF) | payer MEDICARE, BC, SELFPAY | LOC: HWRAD 15:10 | PROVIDERS: ATTENDING PHYSICIAN Neurological Surgery; FAMILY PHYSICIAN Internal Medicine | DX: M47.12 Other spondylosis with myelopathy, cervical region (principal) | CPT/HCPCS: 72050 ==

== ENCOUNTER → 2025-01-04 12:12 | Outpatient (REF) | payer MEDICARE, BC, SELFPAY | LOC: HWRAD 12:12 | PROVIDERS: ATTENDING PHYSICIAN Internal Medicine; REFERRING PHYSICIAN Nurse Practitioner Acute Care | DX: N39.0 Urinary tract infection, site not specified (principal); Z98.1 Arthrodesis status; M54.6 Pain in thoracic spine | CPT/HCPCS: 72070; 72110; 76770 ==

== ENCOUNTER 2025-02-14 06:21 | Day surgery (SDC) | payer MEDICARE, BC, SELFPAY | END 2025-02-14 15:50 | disposition home or self-care (01) | LOC: GI 06:21 | PROVIDERS: ATTENDING PHYSICIAN Internal Medicine Gastroenterology | DX: Z12.11 Encounter for screening for malignant neoplasm of colon (principal); K57.30 Diverticulosis of large intestine without perforation or abscess without bleeding; K64.0 First degree hemorrhoids; K58.9 Irritable bowel syndrome, unspecified; D12.5 Benign neoplasm of sigmoid colon; K63.5 Polyp of colon; Z86.0100 Personal history of colon polyps, unspecified | CPT/HCPCS: 45385; 45380; 88305 ==